=== PATIENT | male | born 1975 | race Caucasian/White ===

== ENCOUNTER 2021-12-05 21:42 | Emergency (ER) | payer OTHER ==
[2021-12-06 03:46] LABS: HEMOGLOBIN 14.1 gm/dl (14.0-17.5); RED BLOOD COUNT 5.02 M/UL (4.20-5.50); WHITE BLOOD COUNT 16.4 K/UL (4.5-11.0)
[2021-12-06 04:17] LABS: BUN/CREATININE RATIO 13 (0-10)
[2021-12-06] MEDS ORDERED: NORFLEX 100 MG100 MG PO (05:30)
[2021-12-06] MEDS ORDERED: NAPROXEN500 MG PO (05:30)
[2021-12-06] MEDS ORDERED: BACTROBAN OINT22 GM EXT (05:30)
== END 2021-12-06 05:35 | disposition home or self-care (01) ==
LOC: ER1 21:42
PROVIDERS: Physician Assistant Medical
DX: S51.811A Laceration without foreign body of right forearm, initial encounter (principal); S80.212A Abrasion, left knee, initial encounter; S30.810A Abrasion of lower back and pelvis, initial encounter; F17.220 Nicotine dependence, chewing tobacco, uncomplicated; V49.40XA Driver injured in collision with unspecified motor vehicles in traffic accident, initial encounter; Y92.410 Unspecified street and highway as the place of occurrence of the external cause
CPT/HCPCS: 12002; 70450; 71111; 71260; 72131; 73502; 80053; 85025; 90471; 90715; 96374; 96375; 96376; 99284; J2270; J2405; Q9967